=== PATIENT | female | born 1960 | race Caucasian/White ===

== ENCOUNTER → 2017-10-05 | Outpatient (CLI) | payer OTHER ==
--- NOTE | 2017-10-05 08:57 | RAD ---
DATE: 10/05/2017 EXAM: DIGITAL SCREEN BILAT W/CAD HISTORY: Routine screening COMPARISON: Previous mammogram from 2016 and 2014 This study was interpreted with the benefit of Computerized Aided Detection (CAD). FINDINGS: Breast Density: SCATTERED The breast parenchyma shows scattered fibroglandular densities. Breast parenchyma level B. The skin and nipples are within normal limits. No suspicious calcifications, spiculated mass or areas of architectural distortion. There is a new 7 mm oval-shaped nodule in the upper outer left breast approximately 7 cm from the nipple best seen on MLO view most likely at 2:00 position in the anterior one third of the left breast. Stable right breast interparenchymal lymph node. IMPRESSION: New nodular density in the upper outer left breast likely at 1-3:00 position most likely intraparenchymal lymph node. However, confirmation is recommended as this is new from previous study. BI-RADS CATEGORY: 0 INCOMPLETE: NEED ADDITIONAL IMAGING EVAULATION AND/OR PRIOR MAMMOGRAMS FOR COMPARISON RECOMMENDED FOLLOW-UP: ADD ADDITIONAL IMAGING. Ultrasound of the left breast as described above. PQRS compliance statement: Patient information was entered into a reminder system with a target due date for the next mammogram. Mammography is a sensitive method for finding small breast cancers, but it does not detect them all and is not a substitute for careful clinical examination. A negative mammogram does not negate a clinically suspicious finding and should not result in delay in biopsying a clinically suspicious abnormality. "Our facility is accredited by the [employer] Mammography Program."
== END | disposition home or self-care (01) ==
LOC: MAMMO 07:58
PROVIDERS: ATTEND Family Medicine
DX: Z12.31 Encounter for screening mammogram for malignant neoplasm of breast (principal)
CPT/HCPCS: G0202; 77067

== ENCOUNTER → 2017-10-12 | Outpatient (CLI) | payer OTHER ==
--- NOTE | 2017-10-12 08:42 | RAD ---
Left breast ultrasound, 10/12/2017: History: Breast nodule Recent mammograms demonstrated a new small nodule at the 2:00 location. A targeted ultrasound exam of that region was performed. A 7 x 6 x 3 mm slightly lobulated nodule is identified which appears to correspond to the mammographic abnormality. Some of its margins are smooth while others are somewhat poorly defined. The nodule is predominantly hypoechoic with some heterogeneous internal echoes. No internal color flow is seen. No posterior acoustic enhancement or shadowing is evident. The lesion is wider than tall. While this may be a complicated cyst or fibroadenoma, malignancy cannot be excluded. IMPRESSION: Mildly suspicious left breast nodule as above. Ultrasound-guided biopsy is suggested. BI-RADS 4-suspicious abnormality. Note: The patient was notified of this recommendation for biopsy by the instrumentation technologist at the time of the exam.
== END | disposition home or self-care (01) ==
LOC: US 08:46
PROVIDERS: ATTEND Family Medicine
DX: N63.20 Unspecified lump in the left breast, unspecified quadrant (principal)
CPT/HCPCS: 76641

== ENCOUNTER → 2017-11-14 | Outpatient (CLI) | payer OTHER ==
[~2017-11-14] MED LIST: LIDOCAINE 1%/EPI 1:100,000 20 ML VIAL. INJ; LIDOCAINE 2%/EPI 1:100,000 20 ML VIAL. IJ
== END | disposition home or self-care (01) ==
LOC: US 13:47
DX: N63.20 Unspecified lump in the left breast, unspecified quadrant (principal); J44.9 Chronic obstructive pulmonary disease, unspecified; I10 Essential (primary) hypertension
CPT/HCPCS: 19081; 76942; 77065; 88305; C1713

== ENCOUNTER → 2018-05-23 | Outpatient (CLI) | payer OTHER ==
[2018-05-23 08:36] LABS: ADD MAN DIFF? NO
[2018-05-23 08:44] LABS: BASO # 0.1 x10^3/uL (0.0-0.2); BASO % 1 % (0-3); EOS # 0.2 x10^3/uL (0.0-0.7); EOS % 3 % (0-3); HEMATOCRIT 34.8 % (36.0-47.0); HEMOGLOBIN 12.2 g/dL (12.0-15.5); LYMPH # 2.5 x10^3/uL (1.0-4.8); LYMPH % 41 % (24-48); MEAN CORPUSCULAR HEMOGLOBIN 32 pg (25-35); MEAN CORPUSCULAR HGB CONC 35 g/dL (31-37); MEAN CORPUSCULAR VOLUME 92 fL (79-100); MONO # 0.3 x10^3/uL (0.0-1.1); MONO % 6 % (0-9); NEUT # 2.9 x10^3uL (1.8-7.7); NEUT % 49 % (31-73); PLATELET COUNT 359 x10^3/uL (140-400); RED BLOOD COUNT 3.79 x10^6/uL (3.50-5.40); RED CELL DISTRIBUTION WIDTH 12.9 % (11.5-14.5); WHITE BLOOD COUNT 5.9 x10^3/uL (4.0-11.0)
[2018-05-23 09:08] LABS: ALBUMIN 3.7 g/dL (3.4-5.0); ALK PHOS 102 U/L (46-116); ALT (SGPT) 28 U/L (14-59); ANION GAP 9 (6-14); AST (SGOT) 18 U/L (15-37); BLOOD UREA NITROGEN 15 mg/dL (7-20); BUN/CREATININE RATIO 19 (6-20); CALCIUM 8.7 mg/dL (8.5-10.1); CARBON DIOXIDE 26 mmol/L (21-32); CHLORIDE 105 mmol/L (98-107); CHOLESTEROL 211 mg/dL (0-200); CREATININE 0.8 mg/dL (0.6-1.0); GFR 74.5; GLUCOSE 95 mg/dL (70-99); HDLC 48 mg/dL (40-60); LDLC 128 mg/dL (0-100); NON-HDL CHOLESTEROL 163 mg/dL (0-129); POTASSIUM 3.8 mmol/L (3.5-5.1); SODIUM 140 mmol/L (136-145); TOTAL BILIRUBIN 0.2 mg/dL (0.2-1.0); TOTAL PROTEIN 7.4 g/dL (6.4-8.2); TRIGLYCERIDES 175 mg/dL (0-150); VLDLC 35 mg/dL (0-40)
[2018-05-23 09:09] LABS: CHOLESTEROL/HDL RATIO 4.4
[2018-05-23 09:18] LABS: FREE T4 0.81 ng/dL (0.76-1.46)
[2018-05-23 09:18] LABS: THYROID STIM HORMONE (TSH) 1.699 uIU/mL (0.358-3.74)
== END | disposition home or self-care (01) ==
LOC: LAB 08:26
DX: Z13.220 Encounter for screening for lipoid disorders (principal); I10 Essential (primary) hypertension; J44.9 Chronic obstructive pulmonary disease, unspecified; R53.83 Other fatigue
CPT/HCPCS: 36415; 80053; 80061; 84439; 84443; 85025

== ENCOUNTER → 2018-09-16 | Outpatient (CLI) | payer OTHER ==
[2018-09-16 11:12] LABS: BASO % 1 % (0-3); EOS # 0.2 x10^3/uL (0.0-0.7); EOS % 4 % (0-3); HEMOGLOBIN 12.6 g/dL (12.0-15.5); LYMPH # 2.5 x10^3/uL (1.0-4.8); LYMPH % 40 % (24-48); MEAN CORPUSCULAR HEMOGLOBIN 32 pg (25-35); MEAN CORPUSCULAR HGB CONC 34 g/dL (31-37); MEAN CORPUSCULAR VOLUME 93 fL (79-100); MONO # 0.4 x10^3/uL (0.0-1.1); MONO % 7 % (0-9); NEUT # 3.1 x10^3uL (1.8-7.7); NEUT % 49 % (31-73); PLATELET COUNT 376 x10^3/uL (140-400); RED BLOOD COUNT 3.99 x10^6/uL (3.50-5.40); RED CELL DISTRIBUTION WIDTH 13.1 % (11.5-14.5); WHITE BLOOD COUNT 6.3 x10^3/uL (4.0-11.0)
[2018-09-16 11:22] LABS: ALBUMIN 3.8 g/dL (3.4-5.0); CALCIUM 9.2 mg/dL (8.5-10.1); CREATININE 0.8 mg/dL (0.6-1.0); GFR 74.5; POTASSIUM 4.1 mmol/L (3.5-5.1); TOTAL BILIRUBIN 0.2 mg/dL (0.2-1.0); TOTAL PROTEIN 7.7 g/dL (6.4-8.2)
== END | disposition home or self-care (01) ==
LOC: LAB 10:55
PROVIDERS: ATTEND Family Medicine
DX: R10.11 Right upper quadrant pain (principal)
CPT/HCPCS: 36415; 80053; 83690; 85025

== ENCOUNTER → 2018-09-20 | Outpatient (CLI) | payer OTHER ==
--- NOTE | 2018-09-20 11:18 | RAD ---
Indication:DX: RUQ ABD pain x 1 1/2 weeks TECHNIQUE: Grayscale, color Doppler and spectral waveform is of the limited abdomen obtained. COMPARISON:None FINDINGS: Visualized pancreas is within normal limits. Pancreatic body and tail is not visualized due to overlying bowel gas. No gallstones, pericholecystic fluid or gallbladder wall thickening. IVC is within normal limits. Liver measures 16 cm in length with diffusely increased echogenicity and decreased through transmission. Hepatic veins are patent. Main portal vein is patent. CBD measures 3 mm in diameter and is within normal limits. Right kidney measures 11.7 cm in length without hydronephrosis. IMPRESSION: 1. Hepatic steatosis. 2. No cholelithiasis or sonographic evidence of acute cholecystitis. Electronically signed by: Burton Pierre DO (09/20/2018 11:14 AM) [id number]
== END | disposition home or self-care (01) ==
LOC: US 06:54
PROVIDERS: ATTEND Family Medicine
DX: K76.0 Fatty (change of) liver, not elsewhere classified (principal)
CPT/HCPCS: 76705

== ENCOUNTER → 2018-10-16 | Outpatient (CLI) | payer OTHER ==
--- NOTE | 2018-10-16 13:14 | RAD ---
DATE: October 16, 2018 EXAM: DIGITAL DIAGNOSTIC BILATERAL HISTORY: History of benign left breast biopsy. Follow-up study after biopsy. Annual screening on the right side. COMPARISON: 2016 and 2017 This study was interpreted with the benefit of Computerized Aided Detection (CAD). FINDINGS: Breast Density: FATTY The breast parenchyma is primarily fatty replaced. Breast parenchyma level density A.. There are no dominant suspicious masses, suspicious microcalcifications or evidence of architectural distortion. Biopsy clip is evident within the upper-outer quadrant of the left breast. The previously seen nodule in this area in 2017 has been excised with a vacuum-assisted biopsy device. No residual nodule or new finding is evident in this area otherwise. IMPRESSION: No mammographic indicators for malignancy. BI-RADS CATEGORY: 2 BENIGN FINDING RECOMMENDED FOLLOW-UP: 12M 12 MONTH FOLLOW-UP PQRS compliance statement: Patient information was entered into a reminder system with a target due date October 17, 2019 for the next mammogram. Mammography is a sensitive method for finding small breast cancers, but it does not detect them all and is not a substitute for careful clinical examination. A negative mammogram does not negate a clinically suspicious finding and should not result in delay in biopsying a clinically suspicious abnormality. "Our facility is accredited by the [employer] Mammography Program." The patient's breast density may affect the ability of mammography to detect breast cancer. There are 4 categories of breast density, A, B, C and D. Breast density A means that most of the breast tissue is replaced with adipose tissue and therefore is not dense. Breast density B means that the breast tissue is mildly dense and scattered. Breast density C means that the breast tissue is heterogeneously dense. Breast density D means that the breast tissue is very dense. Breast densities especially C and D may decrease the sensitivity of mammography to detect breast cancer. Therefore, the patient may benefit from 3-D breast mammography (3D breast tomography) as a part of their screening mammogram. Insurance may or may not pay for this additional imaging. The patient's breast density based on today's mammogram is category A.
== END | disposition home or self-care (01) ==
LOC: MAMMO 12:37
PROVIDERS: ATTEND Family Medicine
DX: R92.8 Other abnormal and inconclusive findings on diagnostic imaging of breast (principal)
CPT/HCPCS: 77066

== ENCOUNTER → 2018-10-28 | Outpatient (CLI) | payer OTHER ==
[2018-10-28 11:28] LABS: ALBUMIN 3.8 g/dL (3.4-5.0); DIRECT BILIRUBIN 0.1 mg/dL (0.0-0.2); TOTAL BILIRUBIN 0.3 mg/dL (0.2-1.0); TOTAL PROTEIN 7.1 g/dL (6.4-8.2)
== END | disposition home or self-care (01) ==
LOC: LAB 08:46
PROVIDERS: ATTEND Family Medicine
DX: R79.89 Other specified abnormal findings of blood chemistry (principal)
CPT/HCPCS: 36415; 80076; 87340

== ENCOUNTER → 2019-02-17 | Outpatient (CLI) | payer OTHER ==
[~2019-02-17] MED LIST changes: +ALBU2.5V8 IH; +CARV25TA PO; +DOCU-109 PO; +FAMO-63 PO; -LIDOCAINE 1%/EPI 1:100,000 20 ML VIAL. INJ; -LIDOCAINE 2%/EPI 1:100,000 20 ML VIAL. IJ; +LOSA100T2 PO; +MOME13HF2 IH; +SINCALIDE 1.6 MCG in IV NORMAL SALINE 50ML 30 ML IV ONE
--- NOTE | 2019-02-17 11:24 | RAD ---
EXAM: Nuclear hepatobiliary scan. HISTORY: Right upper quadrant pain. TECHNIQUE: Following intravenous administration of 5.5 mCi Tc 99m Choletec, anterior images of the abdomen were obtained at five minute intervals through one hour. Subsequently, 1.6 mcg CCK was administered and additional images to assess gallbladder ejection fraction were obtained. FINDINGS: There is prompt radiotracer uptake by the liver. No focal defect is seen. There is normal excretion into the biliary tree. The gallbladder is visualized within 5 minutes and there is free flow into the duodenum. The gallbladder ejection fraction is 85%. IMPRESSION: Normal radionuclide biliary scan. Electronically signed by: Katalina Ruth MD (02/17/2019 11:21 AM) [id number]
== END | disposition home or self-care (01) ==
LOC: NM 08:27
PROVIDERS: ATTEND Internal Medicine Gastroenterology
DX: R10.11 Right upper quadrant pain (principal)
CPT/HCPCS: 78227; A9537; J2805

== ENCOUNTER → 2019-03-05 | Day surgery (SDC) | payer OTHER ==
[~2019-03-05] MED LIST changes: +IV RINGERS,LACTATED 1000ML 1,000 ML IV SCH; +LIDOCAINE 1% PF 2 ML VIAL. ID PRN; +LIDOCAINE 2% PF 5 ML VIAL. ONE; +MIDAZOLAM HCL/PF 2 MG/2 ML VIAL. IV PRN; +PROPOFOL 20 ML IV ONE; -SINCALIDE 1.6 MCG in IV NORMAL SALINE 50ML 30 ML IV ONE; +fentaNYL PF VIAL 100 MCG/2 ML VIAL IV PRN
[2019-03-05 09:18] VITALS: BP 144/72
== END | disposition home or self-care (01) ==
LOC: SURG 07:26
PROVIDERS: ATTEND Internal Medicine Gastroenterology
DX: K64.0 First degree hemorrhoids (principal); J45.909 Unspecified asthma, uncomplicated; K21.9 Gastro-esophageal reflux disease without esophagitis; I10 Essential (primary) hypertension; E78.00 Pure hypercholesterolemia, unspecified; Z87.11 Personal history of peptic ulcer disease; Z83.3 Family history of diabetes mellitus; Z82.49 Family history of ischemic heart disease and other diseases of the circulatory system; Z72.89 Other problems related to lifestyle; Z79.899 Other long term (current) drug therapy; Z90.49 Acquired absence of other specified parts of digestive tract; Z90.710 Acquired absence of both cervix and uterus; Z98.51 Tubal ligation status; Z98.890 Other specified postprocedural states
CPT/HCPCS: 45378; J2001; J2704

== ENCOUNTER → 2020-08-17 | Outpatient (CLI) | payer OTHER ==
[2019-03-05 09:18] VITALS: BP 144/72
[~2020-08-17] MED LIST changes: -ALBU2.5V8 IH; -IV RINGERS,LACTATED 1000ML 1,000 ML IV SCH; -LIDOCAINE 1% PF 2 ML VIAL. ID PRN; -LIDOCAINE 2% PF 5 ML VIAL. ONE; -MIDAZOLAM HCL/PF 2 MG/2 ML VIAL. IV PRN; -PROPOFOL 20 ML IV ONE; +PROVENTIL HFA6.7 GM IH; -fentaNYL PF VIAL 100 MCG/2 ML VIAL IV PRN
[2020-08-17 09:13] LABS: BASO # 0.1 x10^3/uL (0.0-0.2); BASO % 1 % (0-3); EOS # 0.2 x10^3/uL (0.0-0.7); EOS % 4 % (0-3); HEMATOCRIT 34.6 % (36.0-47.0); HEMOGLOBIN 11.6 g/dL (12.0-15.5); LYMPH # 2.3 x10^3/uL (1.0-4.8); LYMPH % 44 % (24-48); MEAN CORPUSCULAR HEMOGLOBIN 31 pg (25-35); MEAN CORPUSCULAR HGB CONC 34 g/dL (31-37); MEAN CORPUSCULAR VOLUME 92 fL (79-100); MONO # 0.3 x10^3/uL (0.0-1.1); MONO % 7 % (0-9); NEUT # 2.3 x10^3/uL (1.8-7.7); NEUT % 44 % (31-73); PLATELET COUNT 386 x10^3/uL (140-400); RED BLOOD COUNT 3.77 x10^6/uL (3.50-5.40); WHITE BLOOD COUNT 5.3 x10^3/uL (4.0-11.0)
[2020-08-17 09:24] LABS: ALBUMIN 3.6 g/dL (3.4-5.0); CALCIUM 9.2 mg/dL (8.5-10.1); CREATININE 0.8 mg/dL (0.6-1.0); GFR 73.9; POTASSIUM 3.9 mmol/L (3.5-5.1); TOTAL BILIRUBIN 0.2 mg/dL (0.2-1.0); TOTAL PROTEIN 7.2 g/dL (6.4-8.2)
[2020-08-17 09:25] LABS: CHOLESTEROL/HDL RATIO 3.7
== END ==
LOC: LAB 08:30
PROVIDERS: ATTEND Nurse Practitioner Family
DX: Z13.220 Encounter for screening for lipoid disorders (principal); Z13.29 Encounter for screening for other suspected endocrine disorder; I10 Essential (primary) hypertension
CPT/HCPCS: 36415; 80053; 80061; 84443; 85025

== ENCOUNTER → 2020-09-02 | Outpatient (CLI) | payer OTHER ==
[2019-03-05 09:18] VITALS: BP 144/72
== END ==
LOC: LAB 08:36
PROVIDERS: ATTEND Nurse Practitioner Family
DX: D64.9 Anemia, unspecified (principal)
CPT/HCPCS: 36415; 83540; 83550

== ENCOUNTER → 2020-09-15 | Outpatient (CLI) | payer OTHER ==
[2019-03-05 09:18] VITALS: BP 144/72
--- NOTE | 2020-09-17 11:56 | RAD ---
DATE: 09/15/2020 1:11 PM EXAM: MAMMO [place] SCREENING BILATERAL HISTORY: Screening COMPARISON: 10/16/2018, 10/05/2017. Bilateral CC and MLO views of the breasts were performed. Bilateral breast tomosynthesis was performed in CC and MLO projections. This study was interpreted with the benefit of Computerized Aided Detection (CAD). FINDINGS: Breast Density: FATTY The Breast Parenchyma is primarily fatty replaced. Breast parenchyma level density A. No suspicious masses, microcalcifications or architectural distortion is present to suggest malignancy in either breast. The visualized axillae are unremarkable. IMPRESSION: No mammographic evidence of malignancy. BI-RADS CATEGORY: 1 NEGATIVE RECOMMENDED FOLLOW-UP: 12M 12 MONTH FOLLOW-UP Annual screening mammography is recommended, unless clinically indicated sooner based on symptoms or change in physical exam. PQRS compliance statement: Patient information was entered into a reminder system with a target due date for the next mammogram. Mammography is a sensitive method for finding small breast cancers, but it does not detect them all and is not a substitute for careful clinical examination. A negative mammogram does not negate a clinically suspicious finding and should not result in delay in biopsying a clinically suspicious abnormality. "Our facility is accredited by the [employer] Mammography [employer]."
== END ==
LOC: MAMMO 12:45
PROVIDERS: ATTEND Nurse Practitioner Family
DX: Z12.31 Encounter for screening mammogram for malignant neoplasm of breast (principal)
CPT/HCPCS: 77063; 77067

== ENCOUNTER 2020-10-16 14:36 | Emergency (ER) | payer OTHER ==
[~2020-10-16] VITALS: Ht 157.5 cm; Wt 85.0 kg
[2020-10-16 14:50] VITALS: BP 126/87
--- NOTE | 2020-10-16 15:35 | RAD ---
Left foot x-rays 3 views HISTORY: Left fourth toe pain and dislocation. FINDINGS: There is dorsal dislocation of the fourth toe intermediate phalanx at the PIP joint. Due to overlapping of bones there is limited evaluation for a nondisplaced fracture however in light of thi s no discrete fracture is evident. The remainder of the foot is intact. IMPRESSION: Dislocation of the fourth toe PIP joint as described above. Electronically signed by: Gordo Hart MD (10/16/2020 3:32 PM) [id number]
--- NOTE | 2020-10-16 15:59 | RAD ---
EXAMINATION: XR FOOT_LEFT 3 VIEWS CLINICAL HISTORY: Reason: post reduction films / Spl. Instructions: / History: TECHNIQUE: XR FOOT_LEFT 3 VIEWS Number of Images/Views: 3 COMPARISON: 10/16/2020 2:42 PM FINDINGS/ IMPRESSION: Interval reduction of the left fourth PIP joint with orthodoxy of normal anatomic alignment. No mohamud dence of acute fracture. Electronically signed by: Josue Estrada DO (10/16/2020 3:56 PM) NAKUL
--- NOTE | 2020-10-16 16:11 | PHYS DOC ---
Past Medical History Past Medical History: Asthma, Depression, Hypertension (MELODY IWLDER APRN) Past Surgical History: Appendectomy, Tonsillectomy, Tubal ligation Additional Past Surgical Histo: HYSTERECTOMY WITH BLADDER LIFT, HEMORRHOID (MELODY WILDER APRN) Smoking Status: Never Smoker Alcohol Use: Occasionally (MELODY WILDER APRN) General Adult EDM: Chief Complaint: TOE PROBLEM HPI: HPI: Patient is a 59 year old female who presents to the ED today complaining of dislocated left fourth toe, patient states she was hugging her niece yesterday, she fell onto the knee and suddenly realized her left fourth toe was dislocated. Patient reports moderate pain to the toe. Pain is worse on touching the toe. Denies anything specifically relieving the toe pain. (MELODY WILDER APRN) Review of Systems: Review of Systems: Constitutional: Denies fever or chills. [] Musculoskeletal: Reports dislocated left fourth toe Integument: Denies rash. [] Neurologic: Denies headache, focal weakness or sensory changes. [] Psychiatric: Denies depression or anxiety. [] (MELODY WILDER APRN) Heart Score: Risk Factors: Risk Factors: DM, Current or recent (<one month) smoker, HTN, HLP, family history of CAD, obesity. Risk Scores: Score 0 - 3: 2.5% MACE over next 6 weeks - Discharge Home Score 4 - 6: 20.3% MACE over next 6 weeks - Admit for Clinical Observation Score 7 - 10: 72.7% MACE over next 6 weeks - Early Invasive Strategies (MELODY WILDER APRN) Allergies: Allergies: Allergies Coded Allergies Type Severity Reaction Last Updated Verified lisinopril Allergy Intermediate COUGH 03/05/19 Yes (MELODY WILDER APRN) Physical Exam: PE: Constitutional: Well developed, well nourished, no acute distress, non-toxic appearance. [] Skin: Warm, dry, no erythema, no rash. [] Back: No tenderness, no CVA tenderness. [] Extremities: Left fourth toe is obviously dislocated. Diffuse tenderness over the toe. Limited range of motion to the toe. +2 left pedal pulse. Cap refill less than 2 seconds the left fourth toe. Neurologic: Alert and oriented X 3, normal motor function, normal sensory function, no focal deficits noted. [] Psychologic: Affect normal, judgement normal, mood normal. [] (MELODY WILDER APRN) Current Patient Data: Vital Signs: Vital Signs Date Time Temp Pulse Resp B/P (MAP) Pulse Ox O2 Delivery O2 Flow Rate FiO2 10/16/20 14:50 98.8 91 16 126/87 (100) 97 Room Air 98.8 (MELODY WILDER APRN) EKG: EKG: [] (MELODY WILDER APRN) Radiology/Procedures: Radiology/Procedures: []PROCEDURE: FOOT LEFT 3V Left foot x-rays 3 views HISTORY: Left fourth toe pain and dislocation. FINDINGS: There is dorsal dislocation of the fourth toe intermediate phalanx at the PIP joint. Due to overlapping of bones there is limited evaluation for a nondisplaced fracture however in light of this no discrete fracture is evident. The remainder of the foot is intact. IMPRESSION: Dislocation of the fourth toe PIP joint as described above. Electronically signed by: Daniele Hart MD (10/16/2020 3:32 PM) [id number] DICTATED and SIGNED BY: DANIELE HART MD DATE: 10/16/20 [id number] PROCEDURE: FOOT LEFT 3V EXAMINATION: XR FOOT_LEFT 3 VIEWS CLINICAL HISTORY: Reason: post reduction films / Spl. Instructions: / History: TECHNIQUE: XR FOOT_LEFT 3 VIEWS Number of Images/Views: 3 COMPARISON: 10/16/2020 2:42 PM FINDINGS/ IMPRESSION: Interval reduction of the left fourth PIP joint with taoist of normal [place] omic alignment. No evidence of acute fracture. Electronically signed by: Josue Bright DO (10/16/2020 3:56 PM) [facility] DICTATED and SIGNED BY: JOSUE BRIGHT DO DATE: 10/16/20 [id number] 0 Left fourth toe reduction Viable consent was obtained. No anesthesia was needed per patient's preference. Left fourth toe was pulled up and internally, obvious reduction bone clicking occurred. Left fourth toe was taped to the third toe. Post reduction x-rays were obtained and reduction was successful. Procedure done by me. (MELODY WILDER APRN) Course & Med Decision Making: Course & Med Decision Making Pertinent Labs and Imaging studies reviewed. (See chart for details) This is a 59-year-old female patient presenting to the ED today with a dislocated left fourth toe. Toe was reduced by me successfully. Discharge to home. Provided Ortho shoe. Patient will wear it at home as needed. Provided Ortho for follow-up. (MELODY WILDER APRN) Norman Disclaimer: Norman Disclaimer: This electronic medical record was generated, in whole or in part, using a voice recognition dictation system. (MELODY WILDER APRN) Departure Departure Impression: Primary Impression: Dislocation of toe of left foot Qualified Codes: S93.105A - Unspecified dislocation of left toe(s), initial encounter Disposition: 01 DC HOME SELF CARE/HOMELESS Condition: STABLE Referrals: LAUREL FLORES (PCP) MARTA PEOPLES MD follow up in 1 week as needed Patient Instructions: Toe Dislocation, [id number] Additional Instructions: You have a dislocated left fourth toe that was reduced. Try to ice and elevate the extremity. You can take Tylenol/ Motrin for pain. Follow-up with the orthopedic doctor provided in 1 week as needed Attending Signature Attending Signature I have reviewed the PA/CORPORATE COMPLIANCE MANAGER's note and plan of care. I was available for consultation as needed during the patient's visit in the emergency department. I agree with the clinical impression, plan, and disposition. (DARIEN SETH DO) MELODY WILDER APRN Oct 16, 2020 16:11 DARIEN SETH DO Oct 16, 2020 18:34
== END 2020-10-16 16:24 | disposition home or self-care (01) ==
LOC: ER 14:36
DX: S93.115A Dislocation of interphalangeal joint of left lesser toe(s), initial encounter (principal); J45.909 Unspecified asthma, uncomplicated; F32.9 Major depressive disorder, single episode, unspecified; I10 Essential (primary) hypertension; Z90.89 Acquired absence of other organs; Z98.51 Tubal ligation status; Z98.890 Other specified postprocedural states; Z88.8 Allergy status to other drugs, medicaments and biological substances; W18.39XA Other fall on same level, initial encounter; Y93.89 Activity, other specified; Y92.89 Other specified places as the place of occurrence of the external cause; Y99.8 Other external cause status
CPT/HCPCS: 28660; 73630; 99284

== ENCOUNTER 2020-12-10 11:33 | Inpatient (IN) | payer OTHER ==
[2020-12-10] VITALS (7 sets, daily range): BP systolic 103–122; BP diastolic 63–81
[~2020-12-10] VITALS: Ht 157.5 cm; Wt 84.0 kg
--- NOTE | 2020-12-10 11:57 | PHYS DOC ---
Past Medical History Past Medical History: Asthma, Depression, Hypertension (JODEE PALMA ARC WELDING MACHINE OPERATOR) Past Surgical History: Appendectomy, Tonsillectomy, Tubal ligation Additional Past Surgical Histo: HYSTERECTOMY WITH BLADDER LIFT, HEMORRHOID (JODEE PALMA ARC WELDING MACHINE OPERATOR) Smoking Status: Never Smoker Alcohol Use: Occasionally (JODEE PALMA APRN) General Adult EDM: Chief Complaint: FOOT INJURY PAIN HPI: HPI: Patient is a 60 year old female who presents with was walking down her deck stairs when she missed a stair and fell injuring her right ankle. There is swelling to the lateral ankle 2+ with bruising. Patient rates her pain at 3 out of 10 is on if she sitting there. She states she cannot put weight on the extremity and her pain level goes up to a 10. He states it is a " sore" type of pain that when she stands up radiates up her leg. Patient denies numbness or tingling, skin color change, coolness to the extremity. Patient has a history of asthma, depression, hysterectomy with bladder lift, tonsillectomy, tubal ligation, hemorrhoid, hypertension. (JODEE PALMA ARC WELDING MACHINE OPERATOR) Review of Systems: Review of Systems: Constitutional: Denies fever or chills. [] Eyes: Denies change in visual acuity. [] HENT: Denies nasal congestion or sore throat. [] Respiratory: Denies cough or shortness of breath. [] Cardiovascular: Denies chest pain. + Right lateral ankle 2+ edema. [] GI: Denies abdominal pain, nausea, vomiting, bloody stools or diarrhea. [] : Denies dysuria. [] Musculoskeletal: Denies back pain. + Right lateral joint pain. [] Integument: Denies rash. + Right lateral ankle bruising [] Neurologic: Denies headache, focal weakness or sensory changes. [] Endocrine: Denies polyuria or polydipsia. [] Lymphatic: Denies swollen glands. [] Psychiatric: Denies depression or anxiety. [] (JODEE PALMA ARC WELDING MACHINE OPERATOR) Heart Score: Risk Factors: Risk Factors: DM, Current or recent (<one month) smoker, HTN, HLP, family history of CAD, obesity. Risk Scores: Score 0 - 3: 2.5% MACE over next 6 weeks - Discharge Home Score 4 - 6: 20.3% MACE over next 6 weeks - Admit for Clinical Observation Score 7 - 10: 72.7% MACE over next 6 weeks - Early Invasive Strategies (JODEE PALMA APRN) Allergies: Allergies: Allergies Coded Allergies Type Severity Reaction Last Updated Verified lisinopril Allergy Intermediate COUGH 03/05/19 Yes (JODEE PALMA APRN) Physical Exam: PE: Constitutional: Well developed, well nourished, no acute distress, non-toxic appearance. [] HENT: Normocephalic, atraumatic, bilateral external ears normal, oropharynx moist, no oral exudates, nose normal. [] Eyes: PERRLA, EOMI, conjunctiva normal, no discharge. [] Neck: Normal range of motion, no tenderness, supple, no stridor. [] Cardiovascular:Heart rate regular rhythm, no murmur [] Lungs & Thorax: Bilateral breath sounds clear to auscultation [] Abdomen: Bowel sounds normal, soft, no tenderness, no masses, no pulsatile masses. [] Skin: Warm, dry, no erythema, no rash. [] Back: No tenderness, no CVA tenderness. [] Extremities: Right lateral ankle tenderness, no cyanosis, no clubbing, right lateral ankle ROM not intact due to pain and swelling, 2+ edema. [] Neurologic: Alert and oriented X 3, normal motor function, normal sensory f unction, no focal deficits noted. [] Psychologic: Affect normal, judgement normal, mood normal. [] (JODEE PALMA APRN) PE: Constitutional: Well developed, well nourished, no acute distress, non-toxic appearance HENT: Normocephalic, atraumatic Lungs & Thorax: No respiratory distress, equal chest rise and fall Abdomen: Soft, no tenderness Skin: Warm, dry, no erythema, no rash Extremities: Right lateral malleolar tenderness on palpation, no obvious defor mity noted Neurologic: Alert and oriented X 3, no focal deficits noted Psychologic: Affect normal, judgment normal (DARIEN SETH DO) EKG: EK and read by Dr Seth sinus rhythm and no STEMI (JODEE PALMA APRN) Radiology/Procedures: Radiology/Procedures: [] Impression: [facility] [id number] [place] [address] IMAGING REPORT Signed PATIENT: FREDIS OSORIO ACCOUNT: [id number] : 1960 LOCATION: ER AGE: 60 SEX: F EXAM STATUS: PRE ER ORD. PHYSICIAN: JODEE PALMA APRN REASON: Fall, RT LATERAL ANKLE PAIN PROCEDURE: ANKLE RIGHT 3V Study: XR EXAM OF ANKLE_RIGHT 3VIEWS Indication: Fall. Ankle pain. Comparison: None. Findings: Acute, obliquely oriented Rose type B distal fibula fracture. Approximately a cortical width displacement. Mild widening of the medial gutter. Normally aligned syndesmosis. On the AP view small focus of mineralization at the tip at the medial malleolus appears chronic. No apparent posterior malleolar fracture. Intact talar dome. Grossly intact partially assessed foot. Predominantly anterolateral ankle soft tissue swelling. Impression: 1. Acute Rose type B distal fibula fracture with minimal displacement. 2. Mild widening of the medial gutter raising the question of deltoid ligament injury noting limited assessment without weightbearing. Attention on follow-up. No posterior or medial malleolar fracture is identified. Electronically signed by: LOLA DALE MD (12/10/2020 12:50 PM) [id number] DICTATED and SIGNED BY: LOLA DALE MD DATE: 12/10/20 [id number] [place] [address] IMAGING REPORT Signed PATIENT: FREDIS OSORIO ACCOUNT: [id number] : 1960 LOCATION: [address] [place] [address] AGE: 60 SEX: F EXAM STATUS: ADM IN ORD. PHYSICIAN: DARIEN SETH DO REASON: gravity stress view ordered only 1view PROCEDURE: ANKLE RIGHT 2V Study: XR EXAM OF ANKLE_RIGHT 2 VIEWS Indication: Follow-up stress views to assess for instability. Comparison: Same day ankle series performed at 1216 hours Impression/Findings: Single AP stress view of the right ankle. More pronounced medial gutter widening confirming the presence of deltoid ligament injury. The very small focus of mineralization at the tip of the medial malleolus now appears more age indeterminant and could represent a tiny avulsion fracture. Redemonstration of the minimally displaced acute Rose type B fibular fracture. Electronically signed by: LOLA DALE MD (12/10/2020 1:28 PM) [id number] DICTATED and SIGNED BY: LOLA DALE MD DATE: 12/10/20 [id number] (JODEE PALMA APRN) Course & Med Decision Making: Course & Med Decision Making Pertinent Labs and Imaging studies reviewed. (See chart for details) See HPI. Alert and oriented x4. Tenderness to the lateral ankle with 2+ swelling and some bruising. Pedal pulses strong and present. Cap refill less than 2 seconds. There is no joint laxity but she cannot rotate at the ankle due to pain and swelling. Skin otherwise pink warm and dry. No tenderness to the tib-fib or to the foot. She can wiggle her toes. No swelling or deformity or bruising to the foot. Impression: 1. Acute Rose type B distal fibula fracture with minimal displacement. 2. Mild widening of the medial gutter raising the question of deltoid ligament injury noting limited assessment without weightbearing. Attention on follow-up. No posterior or medial malleolar fracture is identified. Dr Seth spoke to Dr Foster with ortho and he is taking her to surgery. She has not ate any food today. [] (JODEE PALMA APRN) Dragon Disclaimer: Norman Disclaimer: This electronic medical record was generated, in whole or in part, using a voice recognition dictation system. (JODEE PALMA APRN) Departure Departure Impression: Primary Impression: Malleolar fracture Qualified Codes: S82.892A - Other fracture of left lower leg, initial encounter for closed fracture Disposition: 09 ADMITTED INPT THIS HOSP Admitting Physician: AALIYAH (JODEE PALMA APRN) Condition: STABLE Referrals: LAUREL FLORES (PCP) Attending Signature Attending Signature I have personally interviewed and examined the patient. All charts, labs, and imaging studies were reviewed. I agree with the PA/WARDROBE ATTENDANT's findings, exam, and plan. (DARIEN SETH DO) JODEE PALMA APRN Dec 10, 2020 11:57 DARIEN SETH DO Dec 10, 2020 14:26
--- NOTE | 2020-12-10 12:52 | RAD ---
Study: XR EXAM OF ANKLE_RIGHT 3VIEWS Indication: Fall. Ankle pain. Comparison: None. Findings: Acute, obliquely oriented Rose type B distal fibula fracture. Approximately a cortical width displac ement. Mild widening of the medial gutter. Normally aligned syndesmosis. On the AP view small focus o f mineralization at the tip at the medial malleolus appears chronic. No apparent posterior malleolar fracture. Intact talar dome. Grossly intact partially assessed foot. Predominantly anterolateral ankl e soft tissue swelling. Impression: 1. Acute Rose type B distal fibula fracture with minimal displacement. 2. Mild widening of the medial gutter raising the question of deltoid ligament injury noting limited assessment without weightbearing. Attention on follow-up. No posterior or medial malleolar fracture i s identified. Electronically signed by: LOLA DALE MD (12/10/2020 12:50 PM) [id number]
[2020-12-10 13:15] LABS: BASO # 0.1 x10^3/uL (0.0-0.2); BASO % 1 % (0-3); EOS # 0.2 x10^3/uL (0.0-0.7); EOS % 2 % (0-3); HEMATOCRIT 36.2 % (36.0-47.0); HEMOGLOBIN 12.3 g/dL (12.0-15.5); LYMPH # 2.7 x10^3/uL (1.0-4.8); LYMPH % 31 % (24-48); MEAN CORPUSCULAR HEMOGLOBIN 31 pg (25-35); MEAN CORPUSCULAR HGB CONC 34 g/dL (31-37); MEAN CORPUSCULAR VOLUME 91 fL (79-100); MONO # 0.6 x10^3/uL (0.0-1.1); MONO % 7 % (0-9); NEUT # 5.2 x10^3/uL (1.8-7.7); NEUT % 59 % (31-73); PLATELET COUNT 401 x10^3/uL (140-400); RED BLOOD COUNT 3.99 x10^6/uL (3.50-5.40); WHITE BLOOD COUNT 8.7 x10^3/uL (4.0-11.0)
[2020-12-10] MEDS ORDERED: KETOROLAC 15 MG/ML VIAL. IV PRN (13:15)
[2020-12-10] MEDS ORDERED: ELECTROLYTE (NON-ICU) PROTOCOL. MC PRN (13:15)
[2020-12-10] MEDS ORDERED: CALCIUM CARBONATE 500 MG TAB.CHEW PO PRN (13:15)
[2020-12-10] MEDS ORDERED: BISACODYL 10 MG SUPP.RECT. PR PRN (13:15)
[2020-12-10] MEDS ORDERED: ZOLPIDEM 5 MG TABLET. PO PRN (13:15)
[2020-12-10] MEDS ORDERED: ACETAMINOPHEN 325 MG TABLET. PO PRN (13:15)
[2020-12-10] MEDS ORDERED: LACTULOSE 20 GM/30 ML SOLUTION. PO PRN (13:15)
[2020-12-10] MEDS ORDERED: fentaNYL PF VIAL 100 MCG/2 ML VIAL IV PRN (13:15)
[2020-12-10] MEDS ORDERED: ONDANSETRON PF 4 MG/2 ML VIAL. IVP PRN ×2 (13:15→17:15)
[2020-12-10] MEDS ORDERED: MORPHINE SULFATE 2 MG/ML VIAL. IV PRN (13:15)
[2020-12-10] MEDS ORDERED: oxyCODONE/APAP 5/325 1 TAB TABLET PO PRN (13:15)
[2020-12-10] MEDS ORDERED: MAG HYDROX/ALUMINUM HYD/SIMETH 30 ML ORAL.SUSP PO PRN (13:15)
[2020-12-10] MEDS ORDERED: MAGNESIUM HYDROXIDE 2,400 MG/30 ML ORAL.SUSP. PO PRN (13:15)
[2020-12-10 13:23] LABS: CALCIUM 9.5 mg/dL (8.5-10.1); CREATININE 0.8 mg/dL (0.6-1.0); GFR 73.7; POTASSIUM 4.2 mmol/L (3.5-5.1); PROTHROMBIN TIME PATIENT 12.5 SEC (11.7-14.0)
[2020-12-10 13:28] LABS: ALBUMIN/GLOBULIN RATIO 1.3 (1.0-1.7); TOTAL BILIRUBIN 0.3 mg/dL (0.2-1.0); TOTAL PROTEIN 7.2 g/dL (6.4-8.2)
--- NOTE | 2020-12-10 13:29 | RAD ---
EXAM: XR CHEST 1V INDICATION: Reason: PRE OPERATIVE / Spl. Instructions: / History: . TECHNIQUE: Single view COMPARISON: None FINDINGS: The heart size is normal. The great vessels appear unremarkable. There is no hilar or mediastinal mass. The lungs are clear. There is no pleural effusion or pneumothorax. There are no significant osseous abnormalities. IMPRESSION: No active cardiopulmonary disease. Electronically signed by: Lima Harrison MD (12/10/2020 1:27 PM) [id number]
--- NOTE | 2020-12-10 13:30 | RAD ---
Study: XR EXAM OF ANKLE_RIGHT 2 VIEWS Indication: Follow-up stress views to assess for instability. Comparison: Same day ankle series performed at 1216 hours Impression/Findings: Single AP stress view of the right ankle. More pronounced medial gutter widening confirming the prese nce of deltoid ligament injury. The very small focus of mineralization at the tip of the medial malle olus now appears more age indeterminant and could represent a tiny avulsion fracture. Redemonstration of the minimally displaced acute Rose type B fibular fracture. Electronically signed by: LOLA DALE MD (12/10/2020 1:28 PM) [id number]
[2020-12-10] MEDS ORDERED: PROPOFOL 10 MG/ML (20ML) VIAL. IV ONE ×2 (14:21→15:17)
[2020-12-10] MEDS ORDERED: LIDOCAINE 2% PF 5 ML VIAL. ONE ×2 (14:21→15:17)
[2020-12-10] MEDS ORDERED: fentaNYL PF VIAL 100 MCG/2 ML VIAL ONE (14:22)
--- NOTE | 2020-12-10 14:28 | PDOC2 ---
CONSULT Date of Consult Date of Consult DATE: 12/10/20 TIME: 13:54 Reason for Consult Reason for Consult: Right ankle pain Referring Physician Referring Physician: Dr. 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 She denies medial based ankle pain. No numbness and tingling. Her last meal was last night. She reports painful weightbearing on the lateral aspect of her ankle that is sharp and stabbing. She has 0/10 pain with nonweightbearing. No radiation or pain elsewhere. Past Medical History Cardiovascular: HTN Pulmonary: Asthma Psych: Depression Past Surgical History Past Surgical History: Appendectomy, Tubal Ligation, Tonsillectomy, Hysterectomy, Other (Hemorrhoid) Family History Family History Noncontributory Social History No ALCOHOL: rare Drugs: None Current Problem List Problem List Problems Medical Problems: (1) Malleolar fracture Status: Acute Right Lateral malleolar fracture, closed, displaced Current Medications Current Medications Current Medications Ondansetron HCl (Zofran) 4 mg PRN Q6HRS PRN IVP NAUSEA/VOMITING; Start 12/10/20 at 13:15 Al Hydroxide/Mg Hydroxide (Mylanta Plus Xs) 30 ml PRN Q3HRS PRN PO HEARTBURN / GAS; Start 12/10/20 at 13:15 Calcium Carbonate/ Glycine (Tums) 500 mg PRN Q3HRS PRN PO UPSET STOMACH; Start 12/10/20 at 13:15 Zolpidem Tartrate (Ambien) 5 mg PRN QHS PRN PO INSOMNIA, MAY REPEAT IN 1HR; Start 12/10/20 at 13:15 Info (Non-Icu Electrolyte Protocol) 1 ea PRN DAILY PRN MC SEE COMMENTS; Start 12/10/20 at 13:15 Morphine Sulfate (Morphine Sulfate) 2 mg PRN Q1HR PRN IV MODERATE-SEVERE PAIN; Start 12/10/20 at 13:15 Oxycodone/ Acetaminophen (Percocet 5/325) 1 tab PRN Q4HRS PRN PO MILD PAIN, 1ST CHOICE; Start 12/10/20 at 13:15 Ketorolac Tromethamine (Toradol 15mg Vial) 15 mg PRN Q6HRS PRN IV MILD PAIN 1- 3; Start 12/10/20 at 13:15; Stop 12/15/20 at 13:14 Acetaminophen (Tylenol) 650 mg PRN Q6HRS PRN PO Headaches, Temp > 101.5F; Start 12/10/20 at 13:15 Senna/Docusate Sodium (Senna Plus) 1 tab BID PO ; Start 12/10/20 at 21:00 Magnesium Hydroxide (Milk Of Magnesia) 2,400 mg PRN Q12HR PRN PO CONSTIPATION; Start 12/10/20 at 13:15 Lactulose (Lactulose) 20 gm PRN Q12HR PRN PO CONSTIPATION; Start 12/10/20 at 13:15 Bisacodyl (Dulcolax Supp) 10 mg PRN DAILY PRN AL CONSTIPATION; Start 12/10/20 at 13:15 Enoxaparin Sodium (Lovenox 40mg Syringe) 40 mg Q24H SQ ; Start 12/10/20 at 21:00 Fentanyl Citrate (Fentanyl 2ml Vial) 50 mcg PRN Q1HR PRN IV PAIN; Start 12/10/20 at 13:15; Stop 12/11/20 at 13:14 Active Scripts Active Reported Colace (Docusate Sodium) 100 Mg Capsule 100 Mg PO DAILY Pepcid (Famotidine) 20 Mg Tablet 20 Mg PO BID Dulera 100 Mcg/5 Mcg Inhaler (Mometasone/Formoterol) 13 Gm Hfa.aer.ad 2 Puff IH BID Proventil Hfa Inhaler (Albuterol Sulfate) 6.7 Gm Hfa.aer.ad 2 Puff IH PRN Q4HRS PRN Cozaar (Losartan Potassium) 100 Mg Tablet 50 Mg PO DAILY Coreg (Carvedilol) 25 Mg Tablet 25 Mg PO BIDWMEALS Allergies Allergies: Coded Allergies: lisinopril (Verified Allergy, Intermediate, COUGH, 03/05/19) ROS Review of System Denies fever/chills, chest pain, shortness of air, nausea, vomiting, diarrhea, constipation, numbness/tingling. Physical Exam General: Alert, Oriented X3, Cooperative HEENT: Atraumatic, EOMI, Mucous membr. moist/pink Lungs: Normal air movement Heart: Regular rate Abdomen: Soft, No tenderness Skin: No rashes, No breakdown, Other (No bleeding at R ankle) Neuro: Sensation intact, Cranial nerves 3-12 NL Psych/Mental Status: Mental status NL MUSCULOSKELETAL: Abnormal exam of right (Right ankle pain with palpation laterally and with ROM. No ttp at medial malleolus or deltoid. Wiggles toes and sensation grossly intact to light touch. Brisk cap refill. ) Vitals VITALS Vital Signs Date Time Temp Pulse Resp B/P (MAP) Pulse Ox O2 Delivery O2 Flow Rate FiO2 12/10/20 11:40 97.6 94 16 140/85 (103) 98 Room Air 97.6 Labs Labs Laboratory Tests Test 12/10/20 13:07 White Blood Count 8.7 x10^3/uL (4.0-11.0) Red Blood Count 3.99 x10^6/uL (3.50-5.40) Hemoglobin 12.3 g/dL (12.0-15.5) Hematocrit 36.2 % (36.0-47.0) Mean Corpuscular Volume 91 fL (79-100) Mean Corpuscular Hemoglobin 31 pg (25-35) Mean Corpuscular Hemoglobin Concent 34 g/dL (31-37) Red Cell Distribution Width 13.0 % (11.5-14.5) Platelet Count 401 x10^3/uL (140-400) Neutrophils (%) (Auto) 59 % (31-73) Lymphocytes (%) (Auto) 31 % (24-48) Monocytes (%) (Auto) 7 % (0-9) Eosinophils (%) (Auto) 2 % (0-3) Basophils (%) (Auto) 1 % (0-3) Neutrophils # (Auto) 5.2 x10^3/uL (1.8-7.7) Lymphocytes # (Auto) 2.7 x10^3/uL (1.0-4.8) Monocytes # (Auto) 0.6 x10^3/uL (0.0-1.1) Eosinophils # (Auto) 0.2 x10^3/uL (0.0-0.7) Basophils # (Auto) 0.1 x10^3/uL (0.0-0.2) Prothrombin Time 12.5 SEC (11.7-14.0) Prothromb Time International Ratio 1.0 (0.8-1.1) Sodium Level 141 mmol/L (136-145) Potassium Level 4.2 mmol/L (3.5-5.1) Chloride Level 105 mmol/L (98-107) Carbon Dioxide Level 27 mmol/L (21-32) Anion Gap 9 (6-14) Blood Urea Nitrogen 14 mg/dL (7-20) Creatinine 0.8 mg/dL (0.6-1.0) Estimated GFR (Cockcroft-Gault) 73.7 BUN/Creatinine Ratio 18 (6-20) Glucose Level 100 mg/dL (70-99) Calcium Level 9.5 mg/dL (8.5-10.1) Total Bilirubin 0.3 mg/dL (0.2-1.0) Aspartate Amino Transf (AST/SGOT) 22 U/L (15-37) Alanine Aminotransferase (ALT/SGPT) 37 U/L (14-59) Alkaline Phosphatase 88 U/L (46-116) Troponin I Quantitative < 0.017 ng/mL (0.000-0.055) Total Protein 7.2 g/dL (6.4-8.2) Albumin 4.0 g/dL (3.4-5.0) Albumin/Globulin Ratio 1.3 (1.0-1.7) Images Images Right ankle 3 view XR shows short oblique fracture of the lateral malleolus at the level of the joint line with displacement. No medial malleolar ankle fracture, but there is some widening of the medial gutter with a gravity stress view. Assessment/Plan Assessment/Plan Assessment: 60 YOF with R lateral malleolar closed ankle fracture (Rose B) with medial clear space widening on gravity stress view. Plan: NPO NWB RLE Discussed nonoperative and operative treatment options. Recommend surgical intervention. Discussed operative risks including pain, bleeding, infection, damage to surrounding tissues (including nerves/blood vessels), need for additional procedures, malunion, nonunion. To OR for R ankle ORIF with possible syndesmotic fixation this afternoon Will need PT for crutch training post op before cleared to go home. Anticipate D/C tomorrow am after ABX and PT clearance. MD LIANA Miguel,SWATHI ELDER Dec 10, 2020 14:28
--- NOTE | 2020-12-10 14:46 | PDOC4 ---
Operative Note Operative Note Preop diagnosis: Right lateral malleolus fracture, closed, displaced Postoperative diagnosis: Right lateral malleolus fracture, closed, displaced Procedure performed: 1.Right ankle lateral malleolar fracture open reduction internal fixation 2. External manual stress examination of the syndesmotic joint under fluoroscopy Surgeon: Swathi Foster MD Anesthesia: General LMA Anesthesiologist: Dr. Rowdy Vincent Indications: The patient is a 60-year-old female who sustained a right ankle fracture from a ground-level fall on 12/10/2020. She was evaluated in the emergency department and found to have a right ankle fracture, closed. Nonoperative and operative treatment options were discussed in detail. The patient wished to proceed with operative treatment. A thorough discussion regarding risk, benefits, and alternatives was had as the part of the informed consent discussion. Specific risks were discussed include pain, bleeding, infection, wound healing problems, nerve injury, nonunion/malunion, posttraumatic arthritis, and equinus contracture. Tourniquet: 72min at 250mmHg Complications: None Implants: [place] lateral distal fibular plate with appropriate length screws, locking unicortical distal x4 and cortical bicortical screws proximally x2 with one bicortical locking screw due to lack of bony purchase Procedural Details: The patient was identified in the preoperative holding area. The correct patient, site, and procedure were identified and marked by myself. Patient was brought to the operating room. General anesthesia was administered. The patient was positioned supine and all bony prominences were well-padded. The operative extremity was prepped and draped in the standard sterile orthopedic fashion. A procedural pause was performed, which included confirmation of 2 g of Ancef IV within 60 minutes of the incision. Additionally, the correct patient, site, and procedure were also verified. All members the operating room team agreed with a surgical pause. Attention was then turned to the surgery self. Limb was exsanguinated and the tourniquet placed on the proximal operative thigh was brought up to 250 mmHg aft er an Esmarch bandage exsanguination. A lateral longitudinal incision over the fibula was made distally. Dissection was carried down to the fracture and debrided of fracture hematoma with irrigation and curette. Provisional reduction was obtained with lobster claw reduction clamp and confirmed both visually and using biplanar fluoroscopy. A lateral distal fibula plate was placed and secured with 3 bicortical cortical screws proximally and 4 unicortical locking screws distally after being drilled and measured. Fluoroscopic examination confirmed excellent alignment. The ankle was placed into a stress external rotation view as well as a cotton test for manual evaluation of the syndesmosis and found to be stable. No syndesmotic disruption was identified. At this point, the wound was irrigated with sterile saline. The skin incision was closed in layers using 2-0 Vicryl deep and subcutaneously and 3-0 nylon for skin closure. 20mL of 0.5% Marcaine were injected into the periincisional tissues. A sterile dressing was placed followed by a posterior slab splint. All counts were correct. Patient was extubated and transferred the PACU in stable condition. Postoperative plan: The patient will be kept inpatient for 23 hours of antibiotic and clearance with physical therapy. She is nonweightbearing to the right lower extremity. Aspirin 325 mg p.o. daily for 4 weeks for DVT prophylaxis. Follow-up with [facility] will be in approximately 1 to 2 weeks. SWATHI FOSTER MD Dec 10, 2020 14:46
--- NOTE | 2020-12-10 14:53 | PDOC1 ---
History and Physical Date of Admission Date of Admission 12/10/2020 Identification/Chief Complaint Chief Complaint I fell History of Present Illness History of Present Illness Patient is a 60-year-old female with past medical history of hypertension asthma who was in her usual state of health until this morning when unfortunately she missed stepped and fell to the ground injuring her right lower extremity. Patient had exquisite pain to the area and was able to bear weight but immediately noticed deformity to the affected limb and significant swelling ensued not so long after. The patient denied any chest pain palpitations no lightheadedness no near syncopal episode prior to the event this was a simple slip and fall and she has been diagnosed with a malleolar fracture. She will be admitted for definitive treatment by orthopedic media consultant, all concerns addressed to the best of my abilities, pain is well controlled. Past Medical History Cardiovascular: HTN Pulmonary: Asthma Psych: Depression Past Surgical History Past Surgical History: Appendectomy, Tubal Ligation, Tonsillectomy, Hysterectomy, Other (Hemorrhoid) Family History Family History: No Significant Social History Smoke: No ALCOHOL: rare Drugs: None Current Problem List Problem List Problems Medical Problems: (1) Malleolar fracture Status: Acute Current Medications Current Medications Current Medications Medications (Trade) Dose Ordered Sig/Gil Start Time Stop Time Status Last Admin Dose Admin Acetaminophen (Tylenol) 650 mg PRN Q6HRS PRN 12/10/20 13:15 Al Hydroxide/Mg Hydroxide (Mylanta Plus Xs) 30 ml PRN Q3HRS PRN 12/10/20 13:15 Bisacodyl (Dulcolax Supp) 10 mg PRN DAILY PRN 12/10/20 13:15 Calcium Carbonate/ Glycine (Tums) 500 mg PRN Q3HRS PRN 12/10/20 13:15 Enoxaparin Sodium (Lovenox 40mg Syringe) 40 mg Q24H 12/10/20 21:00 Fentanyl Citrate (Fentanyl 2ml Vial) 100 mcg STK-MED ONCE 12/10/20 14:22 12/10/20 14:22 DC Info (Non-Icu Electrolyte Protocol) 1 ea PRN DAILY PRN 12/10/20 13:15 Ketorolac Tromethamine (Toradol 15mg Vial) 15 mg PRN Q6HRS PRN 12/10/20 13:15 12/15/20 13:14 Lactulose (Lactulose) 20 gm PRN Q12HR PRN 12/10/20 13:15 Lidocaine HCl (Lidocaine Pf 2% Vial) 5 ml STK-MED ONCE 12/10/20 14:21 12/10/20 14:21 DC Magnesium Hydroxide (Milk Of Magnesia) 2,400 mg PRN Q12HR PRN 12/10/20 13:15 Morphine Sulfate (Morphine Sulfate) 2 mg PRN Q1HR PRN 12/10/20 13:15 Ondansetron HCl (Zofran) 4 mg PRN Q6HRS PRN 12/10/20 13:15 Oxycodone/ Acetaminophen (Percocet 5/325) 1 tab PRN Q4HRS PRN 12/10/20 13:15 Propofol (Diprivan) 200 mg STK-MED ONCE 12/10/20 14:21 12/10/20 14:21 DC Senna/Docusate Sodium (Senna Plus) 1 tab BID 12/10/20 21:00 Zolpidem Tartrate (Ambien) 5 mg PRN QHS PRN 12/10/20 13:15 Allergies Allergies Allergies Coded Allergies Type Severity Reaction Last Updated Verified lisinopril Allergy Intermediate COUGH 03/05/19 Yes ROS Review of System CONSTITUTIONAL: No fever or chills EYES: No recent changes SKIN: No rash or itching CARDIOVASCULAR: No chest pain, syncope, palpitations, or edema RESPIRATORY: No SOB or cough GASTROINTESTINAL: No nausea, vomiting or abdominal pain NEUROLOGICAL: No headaches or weakness ENDOCRINE: No cold or heat intolerance GENITOURINARY: No urgency or frequency of urination MUSCULOSKELETAL: No back pain or joint pain LYMPHATICS: No enlarged lymph nodes PSYCHIATRIC: No anxiety or depression Physical Exam Physical Exam GEN.: No apparent distress. Alert and oriented. HEENT: Head is normocephalic, atraumatic NECK: Supple. LUNGS: Clear to auscultation. HEART: RRR, S1, S2 present. Peripheral pulses intact ABDOMEN: Soft, nontender. Positive bowel sounds. EXTREMITIES: Without any cyanosis. NEUROLOGIC: Normal speech, normal tone PSYCHIATRIC: Normal affect, normal mood. SKIN: No ulcerations Vitals Vitals Vital Signs Date Time Temp Pulse Resp B/P (MAP) Pulse Ox O2 Delivery O2 Flow Rate FiO2 12/10/20 11:40 97.6 94 16 140/85 (103) 98 Room Air 97.6 Labs Labs Laboratory Tests Test 12/10/20 13:00 12/10/20 13:07 SARS-CoV-2 Antigen (Rapid) Negative (NEGATIVE) White Blood Count 8.7 x10^3/uL (4.0-11.0) Red Blood Count 3.99 x10^6/uL (3.50-5.40) Hemoglobin 12.3 g/dL (12.0-15.5) Hematocrit 36.2 % (36.0-47.0) Mean Corpuscular Volume 91 fL (79-100) Mean Corpuscular Hemoglobin 31 pg (25-35) Mean Corpuscular Hemoglobin Concent 34 g/dL (31-37) Red Cell Distribution Width 13.0 % (11.5-14.5) Platelet Count 401 x10^3/uL (140-400) Neutrophils (%) (Auto) 59 % (31-73) Lymphocytes (%) (Auto) 31 % (24-48) Monocytes (%) (Auto) 7 % (0-9) Eosinophils (%) (Auto) 2 % (0-3) Basophils (%) (Auto) 1 % (0-3) Neutrophils # (Auto) 5.2 x10^3/uL (1.8-7.7) Lymphocytes # (Auto) 2.7 x10^3/uL (1.0-4.8) Monocytes # (Auto) 0.6 x10^3/uL (0.0-1.1) Eosinophils # (Auto) 0.2 x10^3/uL (0.0-0.7) Basophils # (Auto) 0.1 x10^3/uL (0.0-0.2) Prothrombin Time 12.5 SEC (11.7-14.0) Prothromb Time International Ratio 1.0 (0.8-1.1) Sodium Level 141 mmol/L (136-145) Potassium Level 4.2 mmol/L (3.5-5.1) Chloride Level 105 mmol/L (98-107) Carbon Dioxide Level 27 mmol/L (21-32) Anion Gap 9 (6-14) Blood Urea Nitrogen 14 mg/dL (7-20) Creatinine 0.8 mg/dL (0.6-1.0) Estimated GFR (Cockcroft-Gault) 73.7 BUN/Creatinine Ratio 18 (6-20) Glucose Level 100 mg/dL (70-99) Calcium Level 9.5 mg/dL (8.5-10.1) Total Bilirubin 0.3 mg/dL (0.2-1.0) Aspartate Amino Transf (AST/SGOT) 22 U/L (15-37) Alanine Aminotransferase (ALT/SGPT) 37 U/L (14-59) Alkaline Phosphatase 88 U/L (46-116) Troponin I Quantitative < 0.017 ng/mL (0.000-0.055) Total Protein 7.2 g/dL (6.4-8.2) Albumin 4.0 g/dL (3.4-5.0) Albumin/Globulin Ratio 1.3 (1.0-1.7) Laboratory Tests Test 12/10/20 13:00 12/10/20 13:07 SARS-CoV-2 Antigen (Rapid) Negative (NEGATIVE) White Blood Count 8.7 x10^3/uL (4.0-11.0) Red Blood Count 3.99 x10^6/uL (3.50-5.40) Hemoglobin 12.3 g/dL (12.0-15.5) Hematocrit 36.2 % (36.0-47.0) Mean Corpuscular Volume 91 fL (79-100) Mean Corpuscular Hemoglobin 31 pg (25-35) Mean Corpuscular Hemoglobin Concent 34 g/dL (31-37) Red Cell Distribution Width 13.0 % (11.5-14.5) Platelet Count 401 x10^3/uL (140-400) Neutrophils (%) (Auto) 59 % (31-73) Lymphocytes (%) (Auto) 31 % (24-48) Monocytes (%) (Auto) 7 % (0-9) Eosinophils (%) (Auto) 2 % (0-3) Basophils (%) (Auto) 1 % (0-3) Neutrophils # (Auto) 5.2 x10^3/uL (1.8-7.7) Lymphocytes # (Auto) 2.7 x10^3/uL (1.0-4.8) Monocytes # (Auto) 0.6 x10^3/uL (0.0-1.1) Eosinophils # (Auto) 0.2 x10^3/uL (0.0-0.7) Basophils # (Auto) 0.1 x10^3/uL (0.0-0.2) Prothrombin Time 12.5 SEC (11.7-14.0) Prothromb Time International Ratio 1.0 (0.8-1.1) Sodium Level 141 mmol/L (136-145) Potassium Level 4.2 mmol/L (3.5-5.1) Chloride Level 105 mmol/L (98-107) Carbon Dioxide Level 27 mmol/L (21-32) Anion Gap 9 (6-14) Blood Urea Nitrogen 14 mg/dL (7-20) Creatinine 0.8 mg/dL (0.6-1.0) Estimated GFR (Cockcroft-Gault) 73.7 BUN/Creatinine Ratio 18 (6-20) Glucose Level 100 mg/dL (70-99) Calcium Level 9.5 mg/dL (8.5-10.1) Total Bilirubin 0.3 mg/dL (0.2-1.0) Aspartate Amino Transf (AST/SGOT) 22 U/L (15-37) Alanine Aminotransferase (ALT/SGPT) 37 U/L (14-59) Alkaline Phosphatase 88 U/L (46-116) Troponin I Quantitative < 0.017 ng/mL (0.000-0.055) Total Protein 7.2 g/dL (6.4-8.2) Albumin 4.0 g/dL (3.4-5.0) Albumin/Globulin Ratio 1.3 (1.0-1.7) VTE Prophylaxis Ordered VTE Prophylaxis Devices: No VTE Pharmacological Prophylaxi: Yes Assessment/Plan Assessment/Plan Right ankle lateral malleolar fracture secondary to fall History of hypertension History of asthma reactive thrombocytosis Plan ORIF as per orthopedic surgeon resume home medications pain management IF PT reassess in the am hopefully discharge in the next 24 hours. DVT prophylaxis: aspirin 325 BId Justifications for Admission Other Justification ankle fracture PATSY THOMASON MD Dec 10, 2020 14:53
[2020-12-10] MEDS ORDERED: IV RINGERS,LACTATED 1000ML 1,000 ML IV SCH (15:00)
[2020-12-10] MEDS ORDERED: MIDAZOLAM HCL/PF 2 MG/2 ML VIAL. ONE (15:15)
[2020-12-10] MEDS ORDERED: SEVOFLURANE 61 TO 120 MINUTES. IH ONE (15:18)
[2020-12-10] MEDS ORDERED: DEXAMETHASONE SOD PHOS 4 MG/ML VIAL ONE (15:19)
[2020-12-10] MEDS ORDERED: ONDANSETRON PF 4 MG/2 ML VIAL. ONE (15:19)
[2020-12-10] MEDS ORDERED: BUPIVACAINE MPF 0.5% 30 ML VIAL. ONE (16:22)
[2020-12-10] MEDS ORDERED: HYDROcodone/APAP 7.5/325MG 1 TAB TABLET PO PRN (17:15)
[2020-12-10] MEDS ORDERED: DEXTROSE 50% 25 GM / 50ML DISP.SYRIN. IV PRN (17:15)
[2020-12-10] MEDS ORDERED: ACETAMINOPHEN 500 MG TABLET PO PRN (17:15)
--- NOTE | 2020-12-10 17:45 | RAD ---
Exam: Right ankle 3 views INDICATION: Status post right ankle open reduction internal fixation TECHNIQUE: Frontal, lateral and oblique views of the right Comparisons: None FINDINGS: There is a fixation plate at the distal fibula with numerous fixation fractures. Mild soft tissue swe lling overlying the fibula. Bone mineralization is normal. No acute fractures are identified. IMPRESSION: ORIF changes at the distal fibula. Electronically signed by: Madie Ramirez MD (12/10/2020 5:43 PM) FADI
[2020-12-10] MEDS: HYDROcodone/APAP 7.5/325MG 1 TAB TABLET PO PRN (19:06)
[2020-12-10] MEDS ORDERED: ENOXAPARIN 40 MG/0.4 ML SYRINGE. SQ SCH (21:00)
[2020-12-10] MEDS: SENNOSIDES/DOCUSATE 8.6/50MG TABLET. PO SCH (21:10)
[2020-12-11 03:00] VITALS: BP 113/68
[2020-12-11 04:36] LABS: BASO % 0 % (0-3); EOS % 0 % (0-3); HEMATOCRIT 33.2 % (36.0-47.0); HEMOGLOBIN 11.2 g/dL (12.0-15.5); LYMPH # 1.1 x10^3/uL (1.0-4.8); LYMPH % 11 % (24-48); MEAN CORPUSCULAR HEMOGLOBIN 31 pg (25-35); MEAN CORPUSCULAR HGB CONC 34 g/dL (31-37); MEAN CORPUSCULAR VOLUME 92 fL (79-100); MONO # 0.2 x10^3/uL (0.0-1.1); MONO % 2 % (0-9); NEUT % 87 % (31-73); PLATELET COUNT 339 x10^3/uL (140-400); RED BLOOD COUNT 3.61 x10^6/uL (3.50-5.40); RED CELL DISTRIBUTION WIDTH 13.6 % (11.5-14.5); WHITE BLOOD COUNT 9.3 x10^3/uL (4.0-11.0)
[2020-12-11 05:11] LABS: % LYMPHS 9 % (24-48); % MONOS 1 % (0-10); % SEGS 90 % (35-66); PLT ESTIMATE ADEQUATE (ADEQUATE); TOXIC GRANULATION SLIGHT
[2020-12-11] MEDS: HYDROcodone/APAP 7.5/325MG 1 TAB TABLET PO PRN (06:00)
[2020-12-11 07:00] VITALS: BP 134/88
--- NOTE | 2020-12-11 07:11 | PDOC ---
PROGRESS NOTES Date of Service DATE: 12/11/20 TIME: 07:04 Subjective Subjective Problems overnight:None. Rested comfortably. Pain well controlled, 02/12. Objective Vital Signs Vital Signs Date Time Temp Pulse Resp B/P (MAP) Pulse Ox O2 Delivery O2 Flow Rate FiO2 12/11/20 06:00 Room Air 12/11/20 03:00 99.7 95 18 113/68 (83) 98 99.7 12/10/20 17:20 10 Physical Exam No acute distress. AOx4 Nonlabored respirations RLE splint clean, dry, intact. Wiggles toes. Sensation grossly intact to exposed toes. Labs Laboratory Tests Test 12/10/20 13:00 12/10/20 13:07 12/11/20 04:00 Coronavirus (PCR) Not detected (Not Detected) SARS-CoV-2 Antigen (Rapid) Negative (NEGATIVE) White Blood Count 8.7 x10^3/uL (4.0-11.0) 9.3 x10^3/uL (4.0-11.0) Red Blood Count 3.99 x10^6/uL (3.50-5.40) 3.61 x10^6/uL (3.50-5.40) Hemoglobin 12.3 g/dL (12.0-15.5) 11.2 g/dL (12.0-15.5) Hematocrit 36.2 % (36.0-47.0) 33.2 % (36.0-47.0) Mean Corpuscular Volume 91 fL (79-100) 92 fL (79-100) Mean Corpuscular Hemoglobin 31 pg (25-35) 31 pg (25-35) Mean Corpuscular Hemoglobin Concent 34 g/dL (31-37) 34 g/dL (31-37) Red Cell Distribution Width 13.0 % (11.5-14.5) 13.6 % (11.5-14.5) Platelet Count 401 x10^3/uL (140-400) 339 x10^3/uL (140-400) Neutrophils (%) (Auto) 59 % (31-73) 87 % (31-73) Lymphocytes (%) (Auto) 31 % (24-48) 11 % (24-48) Monocytes (%) (Auto) 7 % (0-9) 2 % (0-9) Eosinophils (%) (Auto) 2 % (0-3) 0 % (0-3) Basophils (%) (Auto) 1 % (0-3) 0 % (0-3) Neutrophils # (Auto) 5.2 x10^3/uL (1.8-7.7) 8.0 x10^3/uL (1.8-7.7) Lymphocytes # (Auto) 2.7 x10^3/uL (1.0-4.8) 1.1 x10^3/uL (1.0-4.8) Monocytes # (Auto) 0.6 x10^3/uL (0.0-1.1) 0.2 x10^3/uL (0.0-1.1) Eosinophils # (Auto) 0.2 x10^3/uL (0.0-0.7) 0.0 x10^3/uL (0.0-0.7) Basophils # (Auto) 0.1 x10^3/uL (0.0-0.2) 0.0 x10^3/uL (0.0-0.2) Prothrombin Time 12.5 SEC (11.7-14.0) Prothromb Time International Ratio 1.0 (0.8-1.1) Sodium Level 141 mmol/L (136-145) Potassium Level 4.2 mmol/L (3.5-5.1) Chloride Level 105 mmol/L (98-107) Carbon Dioxide Level 27 mmol/L (21-32) Anion Gap 9 (6-14) Blood Urea Nitrogen 14 mg/dL (7-20) Creatinine 0.8 mg/dL (0.6-1.0) Estimated GFR (Cockcroft-Gault) 73.7 BUN/Creatinine Ratio 18 (6-20) Glucose Level 100 mg/dL (70-99) Calcium Level 9.5 mg/dL (8.5-10.1) Total Bilirubin 0.3 mg/dL (0.2-1.0) Aspartate Amino Transf (AST/SGOT) 22 U/L (15-37) Alanine Aminotransferase (ALT/SGPT) 37 U/L (14-59) Alkaline Phosphatase 88 U/L (46-116) Troponin I Quantitative < 0.017 ng/mL (0.000-0.055) Total Protein 7.2 g/dL (6.4-8.2) Albumin 4.0 g/dL (3.4-5.0) Albumin/Globulin Ratio 1.3 (1.0-1.7) Segmented Neutrophils % 90 % (35-66) Lymphocytes % 9 % (24-48) Monocytes % 1 % (0-10) Toxic Granulation Slight Platelet Estimate Adequate (ADEQUATE) Imaging XR in PACU of R ankle shows interval ORIF with improvement of alignment. No new fractures or subluxations. Assessment Assessment 60F with Right lateral malleolar fracture, closed POD#1 s/p R distal fibular ORIF Problems: (1) Malleolar fracture Plan Plan of Care 23h of post op abx Asa 325mg po daily x6 weeks for DVT PPX starting today. NWB RLE Ice and elevate RLE. Ankle above knee, knee above heart. D/C today after clears PT F/U with [facility] in 1-2 weeks. Swathi Foster MD Orthopedic Surgery Justicifation of Admission Dx: Justifications for Admission: Justification of Admission Dx: Yes Fracture: Fracture Problem Qualifiers (1) Malleolar fracture: Encounter type: initial encounter Fracture type: closed Laterality: left Qualified Codes: S82.892A - Other fracture of left lower leg, initial encounter for closed fracture SWATHI FOSTER MD Dec 11, 2020 07:11
[2020-12-11] MEDS ORDERED: ASPIRIN 325 MG TABLET PO SCH (08:00)
[2020-12-11] MEDS: SENNOSIDES/DOCUSATE 8.6/50MG TABLET. PO SCH (08:54)
[2020-12-11 11:00] VITALS: BP 127/83
[2020-12-11] MEDS ORDERED: OXYC1TAB15 PO (11:42)
[2020-12-11] MEDS ORDERED: ASPI325T8 PO (11:42)
--- NOTE | 2020-12-11 11:45 | DISCH ---
DISCHARGE INSTRUCTIONS Condition on Discharge Condition on Discharge: Stable Activity After Discharge Activity Instructions for Disc: Other, see below Weight Bearing Status after Di: Non weight bearing Contacting the DR. after DC Call your doctor for: If your condition worsens SHARITA HERMAN MD Dec 11, 2020 11:45
--- NOTE | 2020-12-11 11:49 | PDOC ---
GENERAL General: Discharge summary [id number] VITAL SIGNS Vital Signs/I&O: Vital Signs Date Time Temp Pulse Resp B/P (MAP) Pulse Ox O2 Delivery O2 Flow Rate FiO2 12/11/20 11:00 98.0 90 20 127/83 (98) 98 Room Air 98.0 12/10/20 17:20 10 I & O 12/10/20 12/10/20 12/11/20 15:00 23:00 07:00 Intake Total 950 ml Output Total 15 ml Balance 935 ml ALLERGIES Allergies: Allergies Coded Allergies Type Severity Reaction Last Updated Verified lisinopril Allergy Intermediate COUGH 03/05/19 Yes MEDS Medications: Current Medications Medications (Trade) Dose Ordered Sig/Gil Route PRN Reason Start Time Stop Time Status Last Admin Dose Admin Senna/Docusate Sodium (Senna Plus) 1 tab BID PO 12/10/20 21:00 12/11/20 08:54 Enoxaparin Sodium (Lovenox 40mg Syringe) 40 mg Q24H SQ 12/10/20 21:00 12/10/20 21:11 Cefazolin Sodium/ Dextrose 50 ml @ 100 mls/hr 1X PREOP PRN IV PRIOR TO PROCEDURE 12/10/20 15:30 12/11/20 11:12 DC 12/10/20 15:25 Bupivacaine HCl (Sensorcaine Mpf 0.5%) 30 ml STK-MED ONCE .ROUTE 12/10/20 16:22 12/10/20 16:23 DC 12/10/20 16:45 Aspirin (Susan Aspirin) 325 mg DAILYWBKFT PO 12/11/20 08:00 12/11/20 08:54 Acetaminophen/ Hydrocodone Bitart (Lortab 7.5/325) 1 tab PRN Q4HRS PRN PO MODERATE PAIN 12/10/20 17:15 12/11/20 06:00 Cefazolin Sodium/ Dextrose 50 ml @ 100 mls/hr Q6H IV 12/10/20 18:00 12/11/20 06:29 DC 12/11/20 06:00 Ringer's Solution 1,000 ml @ 30 mls/hr Q24H IV 12/10/20 15:00 12/10/20 15:00 LAB Lab: Laboratory Tests Test 12/10/20 13:00 12/10/20 13:07 12/11/20 04:00 Coronavirus (PCR) Not detected (Not Detected) SARS-CoV-2 Antigen (Rapid) Negative (NEGATIVE) White Blood Count 8.7 x10^3/uL (4.0-11.0) 9.3 x10^3/uL (4.0-11.0) Red Blood Count 3.99 x10^6/uL (3.50-5.40) 3.61 x10^6/uL (3.50-5.40) Hemoglobin 12.3 g/dL (12.0-15.5) 11.2 g/dL (12.0-15.5) L Hematocrit 36.2 % (36.0-47.0) 33.2 % (36.0-47.0) L Mean Corpuscular Volume 91 fL (79-100) 92 fL (79-100) Mean Corpuscular Hemoglobin 31 pg (25-35) 31 pg (25-35) Mean Corpuscular Hemoglobin Concent 34 g/dL (31-37) 34 g/dL (31-37) Red Cell Distribution Width 13.0 % (11.5-14.5) 13.6 % (11.5-14.5) Platelet Count 401 x10^3/uL (140-400) H 339 x10^3/uL (140-400) Neutrophils (%) (Auto) 59 % (31-73) 87 % (31-73) H Lymphocytes (%) (Auto) 31 % (24-48) 11 % (24-48) L Monocytes (%) (Auto) 7 % (0-9) 2 % (0-9) Eosinophils (%) (Auto) 2 % (0-3) 0 % (0-3) Basophils (%) (Auto) 1 % (0-3) 0 % (0-3) Neutrophils # (Auto) 5.2 x10^3/uL (1.8-7.7) 8.0 x10^3/uL (1.8-7.7) H Lymphocytes # (Auto) 2.7 x10^3/uL (1.0-4.8) 1.1 x10^3/uL (1.0-4.8) Monocytes # (Auto) 0.6 x10^3/uL (0.0-1.1) 0.2 x10^3/uL (0.0-1.1) Eosinophils # (Auto) 0.2 x10^3/uL (0.0-0.7) 0.0 x10^3/uL (0.0-0.7) Basophils # (Auto) 0.1 x10^3/uL (0.0-0.2) 0.0 x10^3/uL (0.0-0.2) Prothrombin Time 12.5 SEC (11.7-14.0) Prothrombin Time INR 1.0 (0.8-1.1) Sodium Level 141 mmol/L (136-145) Potassium Level 4.2 mmol/L (3.5-5.1) Chloride Level 105 mmol/L (98-107) Carbon Dioxide Level 27 mmol/L (21-32) Anion Gap 9 (6-14) Blood Urea Nitrogen 14 mg/dL (7-20) Creatinine 0.8 mg/dL (0.6-1.0) Estimated GFR (Cockcroft-Gault) 73.7 BUN/Creatinine Ratio 18 (6-20) Glucose Level 100 mg/dL (70-99) H Calcium Level 9.5 mg/dL (8.5-10.1) Total Bilirubin 0.3 mg/dL (0.2-1.0) Aspartate Amino Transferase (AST) 22 U/L (15-37) Alanine Aminotransferase (ALT) 37 U/L (14-59) Alkaline Phosphatase 88 U/L (46-116) Troponin I Quantitative < 0.017 ng/mL (0.000-0.055) Total Protein 7.2 g/dL (6.4-8.2) Albumin 4.0 g/dL (3.4-5.0) Albumin/Globulin Ratio 1.3 (1.0-1.7) Segmented Neutrophils % 90 % (35-66) H Lymphocytes % 9 % (24-48) L Monocytes % 1 % (0-10) Toxic Granulation Slight Platelet Estimate Adequate (ADEQUATE) Laboratory Tests 12/10/20 13:07 12/11/20 04:00 Laboratory Tests 12/10/20 13:07 Justifications for Admission Other Justification ankle fracture SHARITA HERMAN MD Dec 11, 2020 11:49
--- NOTE | 2020-12-11 12:01 | DS ---
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 She was at home yesterday when she tripped and fell, rolling her right ankle, sustaining a fracture of her lateral malleolus. She was taken to the operating room by Dr. Foster and has done well overnight. She is very eager for discharge as [place] live out [place]. Her daughter is on her way in to pick her up. She has been cleared by Dr. Foster and Physical Therapy for discharge. She tells me her pain is controlled. We have written a short prescription for pain medication. She will need to see Dr. Foster within 10 days for operative followup and her primary care within the same timeframe. She sees nurse practitioner, Frances Bullard in [place], [place]. The patient is otherwise without new complaints this morning. PHYSICAL EXAMINATION: VITAL SIGNS: Notable for that the patient has been afebrile, slightly overnight to 99.7 that has since defervesced. Blood pressure is in the one-teens/60s, heart rate is in the 90s and regular. She is breathing comfortably and saturating normally on room air. GENERAL: She is a pleasant 60-year-old woman, alert and oriented x 3, in no acute distress. HEENT: Unremarkable. NECK: Soft and supple. No adenopathy or thyromegaly noted. CHEST: Clear to auscultation. HEART: S1, S2 normal. Regular rate and rhythm. No murmurs or gallops are noted. ABDOMEN: Soft, nontender, nondistended. No masses or organomegaly noted. EXTREMITIES: Notable for her right lower extremity dressings dry and intact. FINAL DIAGNOSES: Right lateral malleolus fracture after a trip and fall at home, status post operative repair. Kristin as well as Frances Bullard in [place], [place]. SHARITA HERMAN MD DR: TISHA/ata JOB#: [id number] / [id number] Dr. Juan Miguel Rivers Samantha MD
--- NOTE | 2020-12-14 04:53 | EKG ---
[facility] [address] [place] [address] Test Date: 2020-12-10 Test Time: 13:26:32 Pat Name: FREDIS OSORIO Department: Room: Gender: F Train Attendant: : 1960 Requested By: JODEE PALMA Order Number: [id number] Reading MD: Measurements Intervals [place] Rate: 78 P: 43 VA: 158 QRS: 4 QRSD: 76 T: 30 QT: 388 QTc: 446 Interpretive Statements SINUS RHYTHM NORMAL ECG RI6.02 No previous ECG available for comparison
== END 2020-12-11 13:10 | disposition home or self-care (01) | DRG 494 ==
LOC: ER 11:33 → 4 NORTH 13:07
PROVIDERS: ADMIT Internal Medicine; ATTEND Internal Medicine
PROC: 0QSJ04Z Reposition Right Fibula with Internal Fixation Device, Open Approach (ICD-10-PCS; principal; 2020-12-10 15:30)
DX: S82.61XA Displaced fracture of lateral malleolus of right fibula, initial encounter for closed fracture (principal); W01.0XXA Fall on same level from slipping, tripping and stumbling without subsequent striking against object, initial encounter; X50.1XXA Overexertion from prolonged static or awkward postures, initial encounter; Y92.009 Unspecified place in unspecified non-institutional (private) residence as the place of occurrence of the external cause; Z90.710 Acquired absence of both cervix and uterus; Z90.49 Acquired absence of other specified parts of digestive tract; J45.909 Unspecified asthma, uncomplicated; I10 Essential (primary) hypertension; F32.9 Major depressive disorder, single episode, unspecified; Z20.822 Contact with and (suspected) exposure to COVID-19
CPT/HCPCS: 36415; 71045; 73600; 73610; 76000; 80053; 84484; 85007; 85025; 85610; 87426; J0690; J1100; J1650; J2250; J2405; J2704; J3010; J3490; J7120; U0003; 97116-GP; 99285-25; G0378

== ENCOUNTER → 2021-10-11 | Outpatient (CLI) | payer OTHER ==
[~2021-10-11] MED LIST changes: +ASPI325T8 PO; +OXYC1TAB15 PO
--- NOTE | 2021-10-11 15:02 | RAD ---
Bilateral digital screening 2-D and 3-D (digital breast tomosynthesis) mammogram: Reason for examination: Routine screening. Comparison: Mammograms from 10/16/2018 and 09/15/2020. Interpretation was made with the benefit of CAD. FINDINGS: Breast density: Category A. Breast tissue is almost entirely fatty. No suspicious breast mass, malignant appearing calcifications, or architectural distortion is seen. IMPRESSION: No evidence of malignancy. Assessment: BI-RADS 1. Negative. Recommendation: Routine screening mammograms. The patient will receive a letter with the results in the mail. Patient information will be entered i nto the mammography reminder system with a target recall date for the next mammogram. A reminder irlanda er will be generated. Electronically signed by: Sylvia Eisenberg MD (10/11/2021 3:00 PM) [id number]
== END ==
LOC: MAMMO 10:22
PROVIDERS: ATTEND Nurse Practitioner Family
DX: Z12.31 Encounter for screening mammogram for malignant neoplasm of breast (principal)
CPT/HCPCS: 77063; 77067

== ENCOUNTER → 2021-10-26 | Outpatient (CLI) | payer OTHER ==
[~2021-10-26] MED LIST changes: +IOHEXOL 240 MG/ML 50ML VIAL. PO ONE; +IOHEXOL 300 MG/ML 100ML VIAL. IV ONE
--- NOTE | 2021-10-26 11:28 | RAD ---
Study: CT of the abdomen and pelvis with 10/26/2021 Comparison: None Clinical Indication: Vaginal bleeding. Status post hysterectomy 16 years ago. Vaginal bleeding the cu ff. Technique: Contiguous axial images are obtained from the apex of the diaphragm to the pelvic floor. I mages are obtained in the portal venous phase(s). Sagittal and coronal reformations are evaluated. Dose Reduction: One or more of the following individualized dose reduction techniques were utilized f or this examination: 1. Automated exposure control, 2. Adjustment of the mA and/or kV according to p atient size, 3. Use of iterative reconstruction technique FINDINGS: Lung bases: Grossly unremarkable Lower Mediastinum: Grossly unremarkable Liver: Normal in size and contour with no focal parenchymal abnormalities. Biliary: No intra or extra hepatic biliary ductal dilatation. Gallbladder: Partially fluid distended and grossly unremarkable with no radiographically discernible stones. No pericholecystic fluid. Pancreas: Grossly unremarkable Spleen: Grossly unremarkable Adrenals: Grossly unremarkable Kidneys: Free of any hydronephrosis, nephrolithiasis or focal parenchymal abnormality. Gastroduodenum:Grossly unremarkable. Small bowel: Grossly unremarkable with no areas of focal wall thickening or dilatation. Large bowel: Grossly unremarkable with no areas of focal bowel wall thickening or dilatation. Moderat e amount of stool. Appendix: Not identified. No right lower quadrant inflammatory process. Mesentery:No free or loculated fluid collections. No pathologic lymphadenopathy. Retroperitoneum:No suspicious masses or lymphadenopathy. Bladder:Partially fluid distended and grossly unremarkable. Reproductive pelvic organs:Patient status post hysterectomy. There is no findings to suggest prolapse or dehiscence. No definite soft tissue mass. Vascular:Aorta is nonaneurysmal. No clinically significant aortoiliac or visceral arterial stenoses. Bones:No suspicious osteoblastic or osteolytic bone lesions. Moderate multifocal facet arthrosis at m ultiple lower lumbar levels IMPRESSION: Patient is status post hysterectomy. There are no CT findings to suggest dehiscence or prolapse. Ther e is no soft tissue mass the vaginal cuff. Transvaginal ultrasound may be helpful for further evaluat ion. Electronically signed by: Abran Malone (10/26/2021 11:26 AM) [id number]
== END ==
LOC: CT 06:50
PROVIDERS: ATTEND Obstetrics & Gynecology
DX: N93.9 Abnormal uterine and vaginal bleeding, unspecified (principal); M47.816 Spondylosis without myelopathy or radiculopathy, lumbar region; Z90.710 Acquired absence of both cervix and uterus
CPT/HCPCS: 74177; Q9966; Q9967

== ENCOUNTER → 2021-11-02 | Outpatient (CLI) | payer OTHER ==
[~2021-11-02] MED LIST changes: -IOHEXOL 240 MG/ML 50ML VIAL. PO ONE; -IOHEXOL 300 MG/ML 100ML VIAL. IV ONE
--- NOTE | 2021-11-07 16:10 | PATHOLOGY ---
[facility] Accession Number: [id number] . 01 Material submitted: . vagina - VAGINAL CUFF BIOPSY . 01 Clinician provided ICD-10: N93.9 . 01 Clinical history: . VAGINAL BLEEDING H/O LAVH/BSO APPROXIMATELY 16 YRS AGO PRESENTED WITH POSTCOITAL BLEEDING 2 WKS AGO, ALONG THE ENTIRE LINE OF THE VAGINAL CUFF, BLEEDING GRANULATION TISSUE, BIOPSY TAKEN AT THE MIDLINE OF THE BLEEDING VAGINAL CUFF . 02 Diagnosis: Squamous mucosa and submucosa, vaginal cuff biopsy: - Ulceration of squamous mucosa with granulation tissue showing acute and chronic inflammation. LBQ 11/07/2021 1027 Local . 02 Comment: Sections of the vaginal cuff biopsy reveal a vaginal ulcer. The squamous mucosa bordering the ulcer shows no evidence of dysplasia or malignancy. There are no viral inclusions identified. (JPM/db; 11/07/2021) . 02 Electronically signed: . Ramírez Sharma MD, Pathologist NPI- [id number] . 01 Gross description: . The specimen is received in formalin, labeled "An Bansal". The site is not stated on the specimen container. The site is stated on the requisition as "vaginal cuff". Received is a segment of pale guajardo tissue measuring 0.3 cm in maximum dimensions. The specimen is submitted entirely in cassette A1.([facility]; 11/03/2021) [facility] 11/03/2021 1652 Local . 02 Pathologist provided ICD-10: N76.5, N76.1 . 02 CPT . 748229 Specimen Comment: A courtesy copy of this report has been sent to [phone] Specimen Comment: Report sent to Performed at: [address], [place], [place] [id number] MD Basil Mcduffie MD Phone: [phone] Performed at: [address] [id number] MD Ramírez Sharma MD Phone: [phone]
== END ==
LOC: SPEC 14:58
PROVIDERS: ATTEND Obstetrics & Gynecology
DX: N93.9 Abnormal uterine and vaginal bleeding, unspecified (principal)
CPT/HCPCS: 88305

== ENCOUNTER → 2021-11-10 | Outpatient (CLI) | payer OTHER | LOC: LAB 08:47 | PROVIDERS: ATTEND Internal Medicine Pulmonary Disease | DX: R51.9 Headache, unspecified (principal); J02.9 Acute pharyngitis, unspecified; M79.10 Myalgia, unspecified site; Z20.822 Contact with and (suspected) exposure to COVID-19 | CPT/HCPCS: U0003; U0005 ==